=== PATIENT | male | born 1965 | race Caucasian/White ===

== ENCOUNTER 2022-09-19 10:01 | Outpatient (CLI) | payer BC ==
[2022-09-19] MEDS ORDERED: Magnevist 469MG/ML 20 ML VIAL ONE (11:34)
== END 2022-09-19 10:02 | disposition home or self-care (01) ==
LOC: CSHMRI 10:01
PROVIDERS: ATTEND Urology
DX: N42.32 Atypical small acinar proliferation of prostate (principal)
CPT/HCPCS: 72197

== ENCOUNTER 2024-11-14 13:30 | Outpatient (CLI) | payer BC ==
[~2024-11-14 13:30] MED LIST: Magnevist 469MG/ML 20 ML VIAL ONE
== END 2024-11-14 13:31 | disposition home or self-care (01) ==
LOC: CSHMRI 13:30
PROVIDERS: ATTEND Urology
DX: R97.20 Elevated prostate specific antigen [PSA] (principal)
CPT/HCPCS: 72197